=== PATIENT | female | born 1960 | race Caucasian/White ===

== ENCOUNTER 2024-04-14 13:20 | Inpatient (IN) | payer MEDICAID, OTHER ==
[~2024-04-14] VITALS: Ht 168.9 cm; Wt 63.7 kg
[2024-04-14 16:04] LABS: Basophils # (auto) 0 10 ^3/uL (0-0.2); Basophils % (auto) 0.5 % (0.0-2.0); Eosinophils # (auto) 0.1 10 ^3/uL (0-0.8); Eosinophils % (auto) 0.9 % (0.0-7.0); Hematocrit 42.5 % (36.0-46.0); Hemoglobin 14.4 g/dL (12.2-16.2); Mean Corpuscular Hemoglobin 29.5 pg (28.0-32.0); Mean Corpuscular Hgb Conc. 33.8 g/dL (32.0-36.0); Mean Corpuscular Volume 87.2 fL (80.0-100.0); Monocytes # (auto) 0.7 10 ^3/uL (0-1.3); Monocytes % (auto) 11.7 % (0.0-12.0); Neutrophils # (auto) 4.6 10 ^3/uL (1.6-8.6); Neutrophils % (auto) 71.9 % (37.0-80.0); Nucleated Red Blood Cells % 0.2 %; Platelet Count (auto) 134 10^3/uL (140-450); Red Blood Cells 4.87 10^6/uL (4.0-5.20); Red Cell Distribution Width 13.8 % (11.8-14.3); White Blood Cell 6.4 10^3/uL (4.4-10.8)
[2024-04-14 16:05] LABS: Urine Bacteria None Seen /hpf (None Seen)
[2024-04-14 16:15] LABS: Urine Blood Negative /uL (Negative); Urine Clarity Clear (Clear); Urine Color Yellow (Yellow); Urine Protein, UAD Negative (Negative); Urine Specific Gravity 1.032 (1.001-1.035); Urine Urobilinogen Normal (Negative); Urine WBC 3 /hpf (0 - 5); Urine pH 5.5 (5.0-9.0)
[2024-04-14 16:19] LABS: Chloride 108 mmol/L (98-107); Potassium 3.6 mmol/L (3.5-5.1); Sodium 138 mmol/L (136-145)
[2024-04-14 16:20] LABS: Anion Gap 7 (5-15); Calcium 9.1 mg/dL (8.7-10.4); Carbon Dioxide 23 mmol/L (20-30)
[2024-04-14 16:26] LABS: BUN/Creatinine Ratio 23.5 (10.0-20.0); Blood Urea Nitrogen 16 mg/dL (9-23); Glucose 123 mg/dL (74-106)
[2024-04-14 19:41] VITALS: RESP 16; O2SAT 96
[2024-04-14] MEDS: MORPHINE SULFATE 4 MG/ML SYR/VIAL IV ONE (22:13)
[2024-04-14] MEDS: PIPERACILLIN-TAZO 4.5GM 100 ML IV ONE (22:14)
[2024-04-14] MEDS: ONDANSETRON HCL 4 MG/2 ML VIAL IV ONE (22:14)
[2024-04-15] VITALS (10 sets, daily range): BP systolic 101–119; BP diastolic 58–71; PULSE 69–82; RESP 14–20; TEMP 82–98.1; O2SAT 95–99
[2024-04-15] MEDS ORDERED: DOCUSATE SOD 100 MG CAP PO PRN (00:30)
[2024-04-15] MEDS ORDERED: ONDANSETRON HCL 4 MG/2 ML VIAL IV PRN (00:30)
[2024-04-15] MEDS: LACTATED RINGER'S 1,000 ML IV ONE (00:30)
[2024-04-15] MEDS ORDERED: MORPHINE SULFATE INJ 2 MG/ml SYRG IV PRN (00:30)
[2024-04-15] MEDS ORDERED: NITROGLYCERIN 0.4 MG SL TAB SL PRN (00:30)
[2024-04-15] MEDS ORDERED: LEVO25TA6 PO (03:06)
[2024-04-15] MEDS: HYDROcodone-ACET 5/325MG TAB PO PRN (03:08)
[2024-04-15 03:42] LABS: Erythrocyte Sedimentation Rate 6 mm/hr (0-20)
[2024-04-15 06:08] LABS: Basophils # (auto) 0 10 ^3/uL (0-0.2); Basophils % (auto) 0.7 % (0.0-2.0); Eosinophils # (auto) 0.1 10 ^3/uL (0-0.8); Eosinophils % (auto) 2.5 % (0.0-7.0); Hematocrit 40.5 % (36.0-46.0); Hemoglobin 13.6 g/dL (12.2-16.2); Lymphocytes # (auto) 1.9 10 ^3/uL (0.4-5.4); Lymphocytes % (auto) 36.4 % (10.0-50.0); Mean Corpuscular Hemoglobin 28.8 pg (28.0-32.0); Mean Corpuscular Hgb Conc. 33.5 g/dL (32.0-36.0); Monocytes # (auto) 0.9 10 ^3/uL (0-1.3); Monocytes % (auto) 17.1 % (0.0-12.0); Neutrophils # (auto) 2.2 10 ^3/uL (1.6-8.6); Neutrophils % (auto) 43.3 % (37.0-80.0); Nucleated Red Blood Cells % 0.1 %; Platelet Count (auto) 127 10^3/uL (140-450); Red Blood Cells 4.71 10^6/uL (4.0-5.20); Red Cell Distribution Width 13.9 % (11.8-14.3); White Blood Cell 5.1 10^3/uL (4.4-10.8)
[2024-04-15] MEDS: PIPERACILLIN-TAZOB 3.375GM 100 ML IV SCH (06:18)
[2024-04-15] MEDS: SODIUM CHLOR 0.9% PF (SALINE LOCK) 10ML VIAL/SYR IV SCH (06:18)
[2024-04-15 06:26] LABS: Alanine Aminotransferase 38 U/L (7-40); Alkaline Phosphatase 62 U/L (46-116); Anion Gap 5 (5-15); BUN/Creatinine Ratio 14.5 (10.0-20.0); Blood Urea Nitrogen 10 mg/dL (9-23); Calcium 8.9 mg/dL (8.7-10.4); Carbon Dioxide 26 mmol/L (20-30); Chloride 109 mmol/L (98-107); Glucose 83 mg/dL (74-106); Potassium 3.6 mmol/L (3.5-5.1); Sodium 140 mmol/L (136-145)
[2024-04-15 06:27] LABS: Albumin 3.4 g/dL (3.2-4.8); Aspartate Aminotransferase 24 U/L (13-40); Bilirubin, Total 0.5 mg/dL (0.2-1.0); Total Protein 5.9 g/dL (5.7-8.2)
[2024-04-15] MEDS: ENOXAPARIN SOD 40 MG/0.4 ML SYRINGE SC SCH (09:02)
[2024-04-15] MEDS: HYDROmorphone HCL 2 MG/ML VL/or syr IV PRN (09:08)
[2024-04-15] MEDS: KETOCONAZOLE 2 % TOPICAL CREAM 15GM TOP SCH (09:48)
[2024-04-15 12:39] LABS: LDL Cholesterol 64 mg/dL (< 100); Triglycerides 107 mg/dL (< 150)
[2024-04-15 12:41] LABS: Cholesterol 119 mg/dL (< 200); HDL Cholesterol 39 mg/dL (40-59)
[2024-04-15] MEDS: ASPirin 81 mg TAB PO ONE (13:37)
[2024-04-16] VITALS (7 sets, daily range): BP systolic 113–126; BP diastolic 63–78; PULSE 74–91; RESP 16–21; TEMP 97–98.1; O2SAT 97–99
[2024-04-16 01:52] LABS: Amphetamine Screen, Urine Pos (NEGATIVE); Barbiturate Scree,Urine Neg (NEGATIVE); Benzodiazephine Screen, Urine Neg (NEGATIVE); Cannabinoid Screen, Urine Pos (NEGATIVE); Cocaine Screen, Urine Neg (NEGATIVE); Opiate Scree,Urine Neg (NEGATIVE); Phencyclidine Screen, Urine Neg (NEGATIVE)
[2024-04-16 06:30] LABS: Basophils # (auto) 0 10 ^3/uL (0-0.2); Basophils % (auto) 0.8 % (0.0-2.0); Eosinophils # (auto) 0.1 10 ^3/uL (0-0.8); Eosinophils % (auto) 2.4 % (0.0-7.0); Hematocrit 40.3 % (36.0-46.0); Hemoglobin 13.7 g/dL (12.2-16.2); Lymphocytes # (auto) 2.2 10 ^3/uL (0.4-5.4); Lymphocytes % (auto) 39.8 % (10.0-50.0); Mean Corpuscular Hemoglobin 29.5 pg (28.0-32.0); Mean Corpuscular Hgb Conc. 33.9 g/dL (32.0-36.0); Mean Corpuscular Volume 87.1 fL (80.0-100.0); Monocytes # (auto) 0.7 10 ^3/uL (0-1.3); Monocytes % (auto) 13.3 % (0.0-12.0); Neutrophils # (auto) 2.4 10 ^3/uL (1.6-8.6); Neutrophils % (auto) 43.7 % (37.0-80.0); Nucleated Red Blood Cells % 0.3 %; Platelet Count (auto) 136 10^3/uL (140-450); Red Blood Cells 4.63 10^6/uL (4.0-5.20); Red Cell Distribution Width 13.6 % (11.8-14.3); White Blood Cell 5.5 10^3/uL (4.4-10.8)
[2024-04-16 06:44] LABS: Alanine Aminotransferase 33 U/L (7-40); Albumin 3.4 g/dL (3.2-4.8); Alkaline Phosphatase 57 U/L (46-116); Anion Gap 3 (5-15); Aspartate Aminotransferase 25 U/L (13-40); BUN/Creatinine Ratio 15.7 (10.0-20.0); Bilirubin, Total 0.4 mg/dL (0.2-1.0); Blood Urea Nitrogen 13 mg/dL (9-23); Calcium 8.5 mg/dL (8.7-10.4); Carbon Dioxide 28 mmol/L (20-30); Chloride 107 mmol/L (98-107); Glucose 80 mg/dL (74-106); Potassium 4.2 mmol/L (3.5-5.1); Sodium 138 mmol/L (136-145); Total Protein 5.8 g/dL (5.7-8.2)
[2024-04-16] MEDS: ASPirin 81 mg TAB PO SCH (09:27)
[2024-04-16] MEDS: LEVOTHYROXINE SODIUM 25 MCG TAB PO ONE (09:50)
[2024-04-16 14:38] LABS: Erythrocyte Sedimentation Rate 4 mm/hr (0-20)
[2024-04-16] MEDS: ACETAMINOPHEN 325 MG TAB PO PRN (20:43)
[2024-04-17] VITALS (7 sets, daily range): BP systolic 111–123; BP diastolic 61–77; PULSE 76–93; RESP 16–18; TEMP 36.9; O2SAT 97–99
[2024-04-17] MEDS ORDERED: LEVOTHYROXINE SODIUM 25 MCG TAB PO SCH (06:00)
[2024-04-17 06:17] LABS: Basophils # (auto) 0 10 ^3/uL (0-0.2); Basophils % (auto) 0.8 % (0.0-2.0); Eosinophils # (auto) 0.1 10 ^3/uL (0-0.8); Eosinophils % (auto) 2.4 % (0.0-7.0); Hematocrit 44.4 % (36.0-46.0); Hemoglobin 15.2 g/dL (12.2-16.2); Lymphocytes # (auto) 1.8 10 ^3/uL (0.4-5.4); Lymphocytes % (auto) 32.2 % (10.0-50.0); Mean Corpuscular Hemoglobin 29.4 pg (28.0-32.0); Mean Corpuscular Hgb Conc. 34.2 g/dL (32.0-36.0); Mean Corpuscular Volume 86.1 fL (80.0-100.0); Monocytes # (auto) 0.7 10 ^3/uL (0-1.3); Monocytes % (auto) 12.7 % (0.0-12.0); Neutrophils # (auto) 2.9 10 ^3/uL (1.6-8.6); Neutrophils % (auto) 51.9 % (37.0-80.0); Nucleated Red Blood Cells % 0.1 %; Platelet Count (auto) 147 10^3/uL (140-450); Red Blood Cells 5.15 10^6/uL (4.0-5.20); Red Cell Distribution Width 13.8 % (11.8-14.3); White Blood Cell 5.6 10^3/uL (4.4-10.8)
[2024-04-17 06:18] LABS: Alanine Aminotransferase 37 U/L (7-40); Albumin 3.5 g/dL (3.2-4.8); Alkaline Phosphatase 63 U/L (46-116); Anion Gap 3 (5-15); Aspartate Aminotransferase 29 U/L (13-40); BUN/Creatinine Ratio 18.3 (10.0-20.0); Bilirubin, Total 0.4 mg/dL (0.2-1.0); Blood Urea Nitrogen 13 mg/dL (9-23); Calcium 9.2 mg/dL (8.7-10.4); Carbon Dioxide 30 mmol/L (20-30); Chloride 107 mmol/L (98-107); Glucose 89 mg/dL (74-106); Potassium 4.5 mmol/L (3.5-5.1); Sodium 140 mmol/L (136-145); Total Protein 6.3 g/dL (5.7-8.2)
[2024-04-17] MEDS: LEVOTHYROXINE SODIUM 50 MCG TAB PO SCH (06:24)
[2024-04-17] MEDS: cefTRIAXone 1GM/50ML D5W 50 ML IV SCH (09:14)
[2024-04-17] MEDS: GABAPENTIN 100 MG CAP PO ONE (14:40)
[2024-04-17] MEDS ORDERED: DOXY-286 PO (17:49)
[2024-04-18] MEDS ORDERED: GABAPENTIN 100 MG CAP PO SCH (10:00)
[2024-04-19 11:11] LABS: Hepatitis B Core Total AB Negative (Negative)
[2024-04-19 12:12] LABS: Hepatitis A Total Antibody Positive (Negative); Hepatitis B Surface Antibody Negative (Negative); Hepatitis B Surface Antigen Negative (Negative)
[2024-04-19 12:16] LABS: Hepatitis C Antibody Reactive (Negative)
[2024-04-19 16:06] LABS: Antimyeloperoxidase (MPO) Ab <0.2 units (0.0-0.9); Antiproteinase 3 (PR-3) Ab <0.2 units (0.0-0.9)
[2024-04-20 10:06] LABS: Cytoplasmic (C-ANCA) <1:20 titer (Neg:<1:20); Perinuclear (P-ANCA) <1:20 titer (Neg:<1:20)
== END 2024-04-17 19:00 | disposition home or self-care (01) | DRG 346 ==
LOC: ER 13:20 → TELE 04-15 00:20 → TELE-WESTW 04-15 02:57 → WEST WING 04-17 14:06
PROVIDERS: ADMIT Internal Medicine; ATTEND Internal Medicine
DX: I77.6 Arteritis, unspecified (principal); I11.0 Hypertensive heart disease with heart failure; L03.115 Cellulitis of right lower limb; I50.32 Chronic diastolic (congestive) heart failure; L03.116 Cellulitis of left lower limb; E89.0 Postprocedural hypothyroidism; F41.9 Anxiety disorder, unspecified; F32.A Depression, unspecified; G62.9 Polyneuropathy, unspecified; R07.89 Other chest pain; Z88.2 Allergy status to sulfonamides; Z82.5 Family history of asthma and other chronic lower respiratory diseases; Z82.49 Family history of ischemic heart disease and other diseases of the circulatory system; Z91.148 Patient's other noncompliance with medication regimen for other reason; Z79.891 Long term (current) use of opiate analgesic; F15.10 Other stimulant abuse, uncomplicated
CPT/HCPCS: 36415; 71045; 73700; 80048; 80053; 80061; 80307; 81001; 83036; 83516; 83520; 83880; 84443; 84484; 85025; 85652; 86038; 86141; 86225; 86235; 86256; 86704; 86706; 86708; 86803; 87040; 87340; 93005; 93306; 93925; 93970; 99291; G0378; J2405; J2543